=== PATIENT | male | born 1950 | race Caucasian/White ===

== ENCOUNTER 2017-07-13 13:53 | Outpatient (CLI) | payer MEDICARE ==
[2017-07-13 15:16] LABS: #Lymphocytes 0.9 thou/uL (1.20-3.40); #Monocytes 0.8 thou/uL (0.11-0.59); %Basophils 0.3 % (0.0-1.0); %Eosinophils 0.6 % (0.0-10.0); %Lymphocytes 13.3 % (21.0-51.0); %Monocytes 11.5 % (0.0-10.0); Hematocrit 25.8 % (42.0-52.0); Mean Platelet Volume 6.5 fL (7.4-10.4); Red Blood Cell (RBC) Count 2.91 mill/uL (4.70-6.10); White Blood Cell (WBC) Count 6.7 thou/uL (4.8-10.8)
[2017-07-13 15:34] LABS: Anion Gap 12 mmol/L (10-20); BUN (Urea Nitrogen) 14 mg/dL (8.4-25.7); Calc. Creatinine Clearance 0 mL/min (70-130); Calcium 9.2 mg/dL (7.8-10.44); Carbon Dioxide 24 mmol/L (23-31); Chloride 107 mmol/L (98-107); Estimated GFR-MDRD 53
== END 2017-07-13 13:54 | disposition home or self-care (01) ==
LOC: LABBT 13:53
PROVIDERS: ATTEND Surgery
DX: Z01.818 Encounter for other preprocedural examination (principal); K40.90 Unilateral inguinal hernia, without obstruction or gangrene, not specified as recurrent
CPT/HCPCS: 80048; 85025; 93005; 93010

== ENCOUNTER 2017-07-15 09:57 | Day surgery (SDC) | payer MEDICARE ==
[2017-07-13 14:17] VITALS: BMI 27.7
[2017-07-15] MEDS ORDERED: CEFAZOLIN/Water 2 GM/20 ML SYRINGE ONE (10:41)
[2017-07-15] MEDS ORDERED: Bupivacaine/Epinephrine 0.25% 30 ML VIAL ONE (11:02)
[2017-07-15 11:37] LABS: Hematocrit 25.8 % (42.0-52.0)
[2017-07-15] MEDS ORDERED: Midazolam HCl 2 mg/2 ml Vial ONE (11:40)
[2017-07-15] MEDS ORDERED: Fentanyl 250 MCG/5 ML VIAL ONE (11:40)
[2017-07-15] MEDS ORDERED: Glycopyrrolate 0.2 MG/ML 5 ML SYRINGE ONE (15:27)
[2017-07-15] MEDS ORDERED: PHENYLEPHRINE-NS 100 MCG/ML 10 ML SYRINGE ONE (15:27)
[2017-07-15] MEDS ORDERED: ePHEDrine/0.9% NaCl/PF SYRINGE 50 mg/10 ml ONE (15:27)
[2017-07-15] MEDS ORDERED: Ketorolac Tromethamine 30 MG/ML VIAL ONE (15:27)
[2017-07-15] MEDS ORDERED: Lidocaine 1% PF 5 ML VIAL ONE (15:27)
[2017-07-15] MEDS ORDERED: Propofol 200 MG/20 ML VIAL ONE (15:27)
[2017-07-15] MEDS ORDERED: Esmolol 100 MG/10 ML VIAL ONE (15:27)
[2017-07-15] MEDS ORDERED: Ondansetron HCl/PF 4 MG/2 ML Vial ONE (15:27)
--- NOTE | 2017-07-29 12:02 | OP ---
DATE OF PROCEDURE: 07/15/2017 PREOPERATIVE DIAGNOSIS: Right inguinal hernia. POSTOPERATIVE DIAGNOSIS: Right inguinal hernia. PROCEDURE: Da Abelardo laparoscopic right inguinal hernia repair with mesh, ProGrip. SURGEON: Dr. Martinez Zapata ANESTHESIA: General. ESTIMATED BLOOD LOSS: Minimal. COMPLICATIONS: None. SPECIMEN: None. FINDINGS: Right inguinal hernia. TECHNIQUE: The patient was taken to the operating room and placed supine on the table. After genera l anesthetic was obtained, a Escobedo was placed. The abdomen was shaved, prepped and draped in a steri le fashion. Curved incision made above the umbilicus. Cautery was used to dissect down to and score the fascia. Abdominal cavity entered bluntly using a Avril clamp. A 12-mm trocar was placed and hi gh-flow pneumoperitoneum was obtained. Left and right abdominal 8 mm robot trocars were placed. All ports were docked to the robot. The patient had been placed in Trendelenburg position. The surgeon goes to the console. The peritoneum was taken down in the right groin down into the preperitoneal s pace. The pubic tubercle was exposed. The full preperitoneal space is exposed. The indirect inguin al hernia is reduced and dissected back high upon the peritoneum. The indirect, direct and femoral a reas were all dissected. The iliopectineal line was fully exposed, ProGrip mesh brought in through t he right lower quadrant incision and its medial aspect was placed over pubic tubercle. The mesh was unfolded to completely cover the femoral and direct and indirect areas. The peritoneum was then reap proximated using running 3-0 Stratafix. All port sites are infiltrated using local anesthetic. All ports were removed under camera visualization and pneumoperitoneum was let down. PDS was used to cl ose the fascial defect above the umbilicus. All incisions were irrigated and closed using 4-0 Monocr yl and Dermabond. The patient was en route to recovery in stable condition. All instrument counts, needle counts, lap counts are correct.
== END 2017-07-15 15:04 | disposition home or self-care (01) ==
LOC: SDC 09:57
PROVIDERS: ATTEND Surgery
PROC: 0YU54JZ Supplement Right Inguinal Region with Synthetic Substitute, Percutaneous Endoscopic Approach (ICD-10-PCS; principal; 2017-07-15)
DX: K40.90 Unilateral inguinal hernia, without obstruction or gangrene, not specified as recurrent (principal); D53.9 Nutritional anemia, unspecified; F17.200 Nicotine dependence, unspecified, uncomplicated; Z90.49 Acquired absence of other specified parts of digestive tract; Z98.890 Other specified postprocedural states; Z79.899 Other long term (current) drug therapy; Z82.49 Family history of ischemic heart disease and other diseases of the circulatory system
CPT/HCPCS: 49650; 85014; 85018; C1781; J1885; J2001; J2250; J2405; J2704; J3010

== ENCOUNTER 2017-08-05 15:46 | Inpatient (IN) | payer MEDICARE ==
[~2017-08-05 15:46] MED LIST: ISOVUE-370 76%-LOCM 1 ML ONE; Iopamidol 370 76% 50 ML VIAL FS ONE
[2017-08-05 16:29] LABS: Hemoglobin 5.9 g/dL (14.0-18.0); Mean Corpuscular HGB CONC 31.7 g/dL (32.0-36.0); Mean Corpuscular Hemoglobin 26.2 pg (27.0-31.0); Mean Corpuscular Volume 82.7 fl (80.0-94.0); Mean Platelet Volume 6.8 fL (7.4-10.4); Platelet Count 281 thou/uL (130-400); RBC Distribution Width 17.7 % (11.5-14.5); Red Blood Cell (RBC) Count 2.23 mill/uL (4.70-6.10); White Blood Cell (WBC) Count 6.8 thou/uL (4.8-10.8)
[2017-08-05 16:42] LABS: ALT (SGPT) 28 U/L (8-55); AST (SGOT) 39 U/L (5-34); Alkaline Phosphatase 232 U/L (40-150); Anion Gap 11 mmol/L (10-20); BUN (Urea Nitrogen) 19 mg/dL (8.4-25.7); Bilirubin, Total 0.4 mg/dL (0.2-1.2); Calc. Creatinine Clearance 0 mL/min (70-130); Calcium 8.6 mg/dL (7.8-10.44); Carbon Dioxide 27 mmol/L (23-31); Chloride 97 mmol/L (98-107); Estimated GFR-MDRD 59; Globulin 2.7 g/dL (2.4-3.5); Glucose 112 mg/dL (80-115); Potassium 3.9 mmol/L (3.5-5.1); Protein, Total 5.7 g/dL (5.8-8.1); Sodium 131 mmol/L (136-145)
[2017-08-05 16:44] LABS: #Eosinphils 0.1 thou/uL (0.0-0.7); #Lymphocytes 0.8 thou/uL (1.20-3.40); #Monocytes 0.6 thou/uL (0.11-0.59); #Neutrophils 5.3 thou/uL (1.40-6.50); %Basophils 0.4 % (0.0-1.0); %Lymphocytes 11.2 % (21.0-51.0); %Monocytes 9.1 % (0.0-10.0); %Neutrophils 78.3 % (42.0-75.0); Anisocytosis SLIGHT = 6-15 cells (100X) (0-5/hpf); Hypochromia MODERATE=16-30 cells (100X) (0-5/hpf); MDiff Complete? YES; PLT Morphology Comment Appears Adequate; Polychromasia SLIGHT = 2-3 cells (100X) (0-2/hpf)
[2017-08-05] MEDS ORDERED: Pantoprazole 40 MG VIAL ONE (19:20)
[2017-08-05] MEDS ORDERED: Morphine 4 MG/ML VIAL ONE (22:29)
[2017-08-05] MEDS ORDERED: Ondansetron HCl/PF 4 MG/2 ML Vial ONE (22:29)
--- NOTE | 2017-08-05 23:10 | CT ---
CT OF THE ABDOMEN AND PELVIS WITH IV CONTRAST 08/05/17 PROVIDED CLINICAL HISTORY: Abdominal pain. FINDINGS: There is a 5 mm noncalcified left lower lobe pulmonary nodule. The visualized lung bases appear other heller clear. there are innumerable ill-defined hypodense masses throughout both the liver and spleen, compatible with metastatic disease. The pancreas, kidneys and adrenal glands appear unremarkable. There is an enlarged lymph node present in the retrocrural location. No additional lymph node enlargement evident. There is mild free fluid present within the abdomen about the right hepatic margin as well as within the pelvis. There is no evidence for bowel obstruction. There is no free air apparent. There is apparent mural thickening involving the sigmoid colon and descending colon. There are loops of distal ileum which also appear to have somewhat thickened stewart. Vascular calcifications are noted involving the abdominal aorta and its branches. The osseous structures demonstrate no concerning osteoblastic or osteolytic lesions. There is general ized noncircumscribed fluid density seen within the regional subcutaneous adipose layer suggesting ch anges of anasarca. IMPRESSION: 1. Innumerable hepatic and splenic hypodense masses, most compatible with metastatic disease. In fectious etiologies could also be considered but felt less likely. 2. Mild free intraperitoneal fluid as described above. 3. 5 mm left lower lobe pulmonary nodule. Followup nonemergent CT chest is recommended to evalua te for additional nodules. 4. Apparent mural thickening involving portions of colon and small bowel could reflect changes o f colitis and enteritis respectively. POS: [facility]
[2017-08-06] MEDS ORDERED: Ondansetron HCl/PF 4 MG/2 ML Vial IVP PRN (00:17)
[2017-08-06] MEDS ORDERED: Acetaminophen 325 MG TAB PO PRN (00:17)
[2017-08-06] MEDS ORDERED: Ondansetron ODT 4 MG TAB SL PRN (00:17)
[2017-08-06 01:20] VITALS: BMI 31.0
[2017-08-06 10:46] LABS: Hemoglobin 7.9 g/dL (14.0-18.0); Platelet Count 314 thou/uL (130-400)
[2017-08-06 10:55] LABS: Bilirubin Negative (Negative); Blood, Urine Negative (Negative); Clarity CLEAR (Clear); Glucose, Urine (Dipstick) Negative (Negative); Leukocyte Small (Negative); Nitrite Negative (Negative); Protein, Urine (Dipstick) Negative (Neg-Trace); Specific Gravity, Urine 1.034 (1.002-1.036)
[2017-08-06 10:57] LABS: Bacteria/HPF None Seen HPF (None Seen); Hyaline Casts/LPF 0-3 HYALINE CAST LPF (0-3 Hyaline); RBC/HPF 0-3 HPF (0-3); Squamous Epithelial None Seen HPF (0-3)
[2017-08-06 11:01] LABS: Troponin I 0.033 ng/mL (< 0.028)
[2017-08-06] MEDS ORDERED: Pantoprazole 40 MG VIAL IVP SCH (11:15)
[2017-08-06] MEDS: Sodium Chloride 0.9% 1,000 ML IV SCH (12:09)
--- NOTE | 2017-08-06 12:23 | CT ---
CT CHEST WITHOUT CONTRAST: Date: 08/06/17 HISTORY: Evaluate for mass. COMPARISON: Chest 2 views dated 08/03/17. FINDINGS: On the left hilum is some soft tissue density with peripheral reticulation and bronchial wall thicken ing. There is some mild narrowing of the left upper lobe bronchus with peripheral linear round atelec tasis or scarring. It is possible this could be a small mass, although there is a calcified granuloma in this area that may represent a scar from old infection. It is difficult to measure a specific mas s in particular as a majority of this is linear in nature. Remainder of the lungs are without suspici ous entity. Please see the recent CT of the abdomen and pelvis for intraabdominal findings. Moderate degenerative changes of the glenohumeral joints bilaterally. No compression fracture of the thoracic spine. No displaced rib fracture. IMPRESSION: Area of mild soft tissue thickening along the left superior hilum on the left superior mainstem bronc hus with peripheral either scarring or round atelectasis and less likely desmoplastic reaction from m alignancy. There is a calcified granuloma in the center of this area. This may represent prior infect ious process or scarring. PET CT may be beneficial to demonstrate benignity. At this point, percutane ous biopsy of one of the more amenable abdomen and pelvis findings would be beneficial. POS: [facility]
--- NOTE | 2017-08-06 14:37 | HP ---
CHIEF COMPLAINT: Black tarry stools. HISTORY OF PRESENT ILLNESS: This is a 66-year-old pleasant gentleman who was apparently in usual sta te of health, had his umbilical hernia surgery and inguinal hernia surgery on 07/15/2017 and noticed that his leg was swelling more and more and he had some pain. He was actually taking a lot of Aleve and Advil because of the umbilical pain as well. After the surgery, he did well and he was sent home on iron pills because he was found to be anemic, but on 07/20/2017, he started noticing black tarry stools and he came into the emergency room yesterday because he was concerned and they found his hemo globin to be 5.9. They gave him 2 units of blood and admitted him to the hospital for further evalua tion and treatment. The patient denies any chest pain, palpitation, shortness of breath. Admits to worsening swelling of both legs and the swelling has increased from the ankle all the way up to the t high into the abdomen. The patient otherwise denies any chest pain, shortness of breath, nausea or v omiting. PAST MEDICAL HISTORY: Significant for migraine headaches. PAST SURGICAL HISTORY: Appendectomy, inguinal hernia surgery, umbilical hernia surgery, and heel mike adela. SOCIAL HISTORY: He used to smoke. The patient smoke cigarettes every day, he has been smoking for 2 0-25 years. He recently quit drinking 3 months ago. Denies any recreational drugs. MEDICATIONS: Please see MAR. FAMILY HISTORY: Negative for diabetes and hypertension. ALLERGIES: No known drug allergies. REVIEW OF SYSTEMS: Significant for black tarry stool, bilateral worsening swelling of both the legs, otherwise, no fever, no chills, no headache, no appetite, no hearing latencies. No cough. No chest pain, diarrhea, dysuria or polyuria. No memory or mood changes. No neck pain. PHYSICAL EXAMINATION: VITAL SIGNS: Blood pressure is 114/56, temperature is 99.3, pulse is 100, respirations 18, breathing comfortably on room air. GENERAL: The patient is lying in bed, no apparent distress. HEENT: Atraumatic and normocephalic. Pupils equally round, react to light. Extraocular movements i ntact. Mucous membranes moist. NECK: Supple. No JVD. CHEST: Breath sounds are heard. There are no rales or rhonchi. HEART: S1, S2, no murmurs or gallops. ABDOMEN: Soft, some right upper quadrant tenderness and some swelling of the lower abdominal wall ex tending into the thighs and legs. Bowel sounds are present. EXTREMITIES: Bilateral pedal edema. Distal pulses are not palpable. No cyanosis. No clubbing. NEUROLOGIC: Alert, awake, oriented. No cranial deficits. No sensorimotor deficits. LABORATORY DATA: WBC count is 6.8, hemoglobin 5.9. Potassium is 3.9, creatinine is 1.22, albumin is 3.0, glucose is 112. CT scan of the abdomen shows innumerable hepatic and splenic hypodense masses, most compatible with metastatic disease, infectious etiologies could be considered, but felt less li brijesh has some intraperitoneal fluid, 5 mm left lower lobe nodule. ASSESSMENT AND PLAN: 1. Upper gastrointestinal bleed with tarry stools, probably secondary to NSAID use. We will stop NS AIDs, IV Protonix b.i.d. Consult GI. IV fluids. Monitor H&H and transfuse blood as needed. 2. Hepatosplenic hypodense masses. We will consult Oncology for their recommendations. We will als o do CT scan of the chest. 3. Tobacco use. 4. History of alcohol use. 5. Obesity with BMI of 31. Sequential compression devices for deep venous thrombosis prophylaxis, b ilateral pedal edema. We will check echocardiogram and do BNP as well. I will work with consultants in further caring for the patient.
[2017-08-06] MEDS: HYDROcodone/Acetaminophen 5/325 mg Tablet PO PRN ×3 (14:38→22:29)
[2017-08-06 14:41] LABS: Hemoglobin 7.4 g/dL (14.0-18.0)
[2017-08-06 15:21] LABS: CEA, Serum 4.7 ng/mL (< or = 5.0)
[2017-08-06 15:23] LABS: PSA-Asymptomatic (SCREENING) 3.02 ng/mL (0-4.0)
--- NOTE | 2017-08-06 16:01 | CON ---
DATE OF CONSULTATION: 08/06/2017 REASON FOR CONSULTATION: Liver lesions. HISTORY OF PRESENT ILLNESS: Mr. Winter is a 66-year-old gentleman who recently had a hernia repair on 07/15/2017. Since that time, he has developed peripheral edema. He presented to his primary care f or evaluation. A CBC drawn showed a hemoglobin of 6.9. He was asked to come to the emergency room y for evaluation. In the emergency room, an abdominal and pelvis CT showed diffuse hepatic an d splenic hypodense masses consistent with metastatic disease. There was mild free intraperitoneal f luid. There was some mural thickening involving a portion of the colon and small bowel. There was a very small lung nodule. He had a chest CT that showed some bronchial wall thickening, no obvious ma ss. The patient states he has had black stool recently. He has been taking Ecotrin and Motrin for h is pain for the past several months. He denies any weight loss and in fact states that he has gained 30 pounds over the last few weeks secondary to fluid retention. This gentleman has not seen a physi diane for many years. He has never had a colonoscopy or prostate exam. PAST MEDICAL AND SURGICAL HISTORY: Inguinal hernia repair. ALLERGIES: No known drug allergies. HOME MEDICATIONS: 1. Lasix 20 mg daily. 2. Protonix 40 mg daily. FAMILY HISTORY: No known history of colon cancer. SOCIAL HISTORY: The patient is , lives with his spouse. Smoked a pipe, recently quit a coupl e of months ago. He was a daily drinker, quit several months ago as well. REVIEW OF SYSTEMS: Constitutional: No fever, chills, or night sweats. Positive for recent weight g ain. Eyes: No blurred or double vision. ENT: No pain, hoarseness, sore throat, or dysphagia. Car diovascular: No chest pain, palpitations or syncope. Respiratory: No shortness breath, dyspnea on exertion or orthopnea. Gastrointestinal: No nausea, vomiting, diarrhea, or constipation. Positive for abdominal pain. Genitourinary: No dysuria or hematuria. Musculoskeletal: No joint or back brennan n. Skin: No rash or pruritus. Hematological: Positive for dark stools. Neurologic: No weakness, headache, numbness, tingling or seizure activity. Psychiatric: No anxiety or depression. PHYSICAL EXAMINATION: VITAL SIGNS: Temperature is 99.1, pulse is 100, respiratory rate 20, BP is 114/56. He is 92% on cecilia m air. GENERAL: Well-developed, well-nourished male in no acute distress. HEENT: Normocephalic, atraumatic. Pupils equal and reactive to light and wears glasses. NECK: Supple. CARDIOVASCULAR: Regular rate and rhythm. LUNGS: Clear. ABDOMEN: Distended and firm. Bowel sounds are positive. EXTREMITIES: He has got 3+ edema in bilateral lower extremities. SKIN: No rash. HEMATOLOGIC: No petechia or purpura. NEUROLOGICAL: Nonfocal. PSYCHIATRIC: The patient is alert and oriented and appropriate. PERTINENT LABORATORY AND X-RAYS: Current WBCs are 6.8, hemoglobin 7.9, hematocrit 24.6, platelet cou nt is 314,000 with 78% neutrophils, 11% lymphocytes. Sodium is 131, potassium 3.9, chloride 97, CO2 is 27, BUN is 19, creatinine 1.22, glucose is 112, calcium is 8.6, total bilirubin is 0.4, AST is 39, ALT is 28, alkaline phosphatase is 232. Troponin is 0.033. BNP is 778.3. Serum total protein is 5 .7, albumin 3.0, globulin 2.7. Urine is negative for bacteria. RADIOLOGY: Per HPI. IMPRESSION: 1. Metastatic liver lesions. 2. Possible gastrointestinal bleed. 3. Peripheral edema. 4. Possible congestive heart failure. DISCUSSION: CT findings were discussed in detail with the patient and his daughter. They are aware that this is very concerning for metastatic disease. They are willing to move forward with a colonos copy to make sure that there is no active bleed and for possible biopsies during the procedure. They do not consent to a CT guided liver biopsy. They are planning to go to [facility]. They have family that works there and that this is where they wish to be seen and evaluated and diagnosed. Our office information was provided should they need any assistance and I will check a CE A and PSA. Otherwise, I will defer to GI. Thank you for the consult.
--- NOTE | 2017-08-06 16:56 | CON ---
DATE OF CONSULTATION: 08/06/2017 TYPE OF CONSULTATION: Gastroenterology Consultation. REQUESTING PHYSICIAN: Thuy Mercedes MD REASON FOR CONSULTATION: GI bleeding. HISTORY OF PRESENT ILLNESS: Warren Winter is a 66-year-old man who was admitted to the hospital [facility] with melena and anemia, now unfortunately found to have likely metastatic disease on CT scan. B sammefly, he has no prior history of significant gastrointestinal illness. He does have some chronic i ndigestion symptoms for which he will often take aspirin or Tums, but no acid suppression. He was serna ving issues with an umbilical hernia and a right inguinal hernia and so he actually underwent double hernia repair on 07/15/[address] Zapata. Labs around that time did show some mild anemia. I no te his hemoglobin was 8.6 on 07/13/2017. He was started on some iron tablets as well as Protonix. Shane rasmussen says that over the past few weeks, he has been recovering in terms of pain from his surgery; that h as gone really well. In fact, with the Protonix, his indigestion has essentially resolved. He has c ontinued to take a lot of Advil and a lot of Aleve. Unfortunately, he developed several new symptoms . For the past two and a half weeks, his stools have been dark black. There has been no bright red blood in the stools. This was after an initial bout of constipation, but now he is having multiple b lack bowel movements per day. In addition, he started developing lower extremity edema which has pro gressed up the legs and thighs and into the lower abdomen. This is also new. He has begun to be fat igue and dyspnea on exertion. Upon presentation, his hemoglobin was found to be 5.9. He had a CT of the chest, abdomen, and pelvis and this unfortunately demonstrated innumerable masses in the liver a nd spleen, most compatible with metastatic disease, small amount of free fluid in the abdomen and an area of probable scarring at the left superior main stem bronchus. He was started on IV Protonix. Shane rasmussen was given 2 units of RBCs and hemoglobin came up to 7.9. Followup hemoglobin this afternoon was 7. 4, BUN is only 19 with creatinine 1.22. He has remained hemodynamically stable. He was seen by [facility] and we are consulted for the GI bleeding as well as workup of probable malignancy. REVIEW OF SYSTEMS: Full review of systems including constitutional, head, eyes, ears, nose, throat, GI, , cardiovascular, respiratory, musculoskeletal, and neurologic systems is negative except as no vasyl in the HPI. PAST MEDICAL HISTORY: Migraine headaches, appendectomy, umbilical hernia and inguinal hernia surgery on 07/15/2017. ALLERGIES: No known drug allergies. OUTPATIENT MEDICATIONS: Protonix 40 mg daily, Lasix 20 mg daily, Advil p.r.n., Aleve p.r.n. INPATIENT MEDICATIONS: Lathrop p.r.n., Protonix 40 mg IV q.12 hours. SOCIAL HISTORY: He is a former smoker. He recently quit drinking alcohol. No drug use. FAMILY HISTORY: Negative for GI malignancy. PHYSICAL EXAMINATION: VITAL SIGNS: Temperature 99.1, pulse 100, blood pressure 114/56, 92% oxygen saturation on room air. GENERAL: Pale 66-year-old man sitting up in bed comfortably in no acute distress. MENTAL: Alert and fully oriented, pleasant, conversational, can give a detailed coherent history. EYES: No scleral icterus. Extraocular movements intact. ENT: Mucous membranes moist, no oral lesions. LYMPH: No submandibular, supraclavicular lymphadenopathy. THYROID: Nontender to palpation. HEART: Regular rate and rhythm. LUNGS: Clear to auscultation bilaterally. ABDOMEN: Bowel sounds present, mild distention, soft, nontender to deep palpation throughout. EXTREMITIES: He has 1-2+ bilateral lower extremity edema all the way up to thighs. NEUROLOGICAL: Cranial nerves II-XII intact bilaterally. No focal deficits. VESSELS: Radial pulses 2+ bilaterally. LABORATORY STUDIES: Hemoglobin initially 5.9, came up to 7.9 after 2 units RBCs, now 7.4. WBC 6.8, platelets 314, BUN 19, creatinine 1.22. Total bilirubin 0.4, alkaline phosphatase 232, AST 39, ALT 2 8, albumin 3.0. CEA only 4.7. PSA only 3.02. BNP elevated to 778.3, troponin 0.033. IMAGING STUDIES: CT of the chest, abdomen, and pelvis demonstrated an area of probable scarring in t he left superior main stem bronchus. There are enumerable hepatic and splenic masses most compatible with metastatic disease. There is a 5 mm left lower lobe pulmonary nodule. Pancreas, kidneys and a drenal glands appeared normal. There were a few areas of possible thickening in the colon and small bowel. ASSESSMENT AND PLAN: 1. Melena. 2. Acute blood loss anemia. 3. Chronic nonsteroidal anti-inflammatory drug use. 4. Likely diffuse metastatic disease, unknown primary. I discussed with the patient and his family that this presentation certainly seems most consistent with gastrointestinal bleeding. I would suspe ct upper gastrointestinal source based on the melena as well as the heavy nonsteroidal anti-inflammat ory drug use. However, there is also what appears to be metastatic intraabdominal malignancy. Note the normal CEA level, but GI primary would certainly be high on the differential. To address both is sues, I recommended we proceed with EGD and colonoscopy tomorrow morning after bowel preparation this evening. In the meantime, continue with the IV Protonix. Continue to trend the H&H and transfuse a s needed. Thank you for the consultation. Please call back with questions or concerns.
[2017-08-06 17:39] LABS: Troponin I 0.025 ng/mL (< 0.028)
[2017-08-06] MEDS ORDERED: GoLYTELY 4,000 ml Bottle PO SCH (18:00)
[2017-08-06] MEDS: Pantoprazole 40 MG VIAL IVP SCH (20:32)
[2017-08-06 22:00] LABS: Hemoglobin 7.7 g/dL (14.0-18.0)
[2017-08-07] MEDS: HYDROcodone/Acetaminophen 5/325 mg Tablet PO PRN ×4 (02:04→16:43)
[2017-08-07 05:31] LABS: ALT (SGPT) 24 U/L (8-55); AST (SGOT) 29 U/L (5-34); Albumin 2.9 g/dL (3.4-4.8); Alkaline Phosphatase 209 U/L (40-150); Anion Gap 13 mmol/L (10-20); BUN (Urea Nitrogen) 18 mg/dL (8.4-25.7); Bilirubin, Total 0.5 mg/dL (0.2-1.2); Calc. Creatinine Clearance 117 mL/min (70-130); Calcium 8.7 mg/dL (7.8-10.44); Carbon Dioxide 25 mmol/L (23-31); Chloride 99 mmol/L (98-107); Estimated GFR-MDRD Greater than 90; Globulin 2.6 g/dL (2.4-3.5); Glucose 92 mg/dL (80-115); Potassium 3.4 mmol/L (3.5-5.1); Protein, Total 5.5 g/dL (5.8-8.1); Sodium 134 mmol/L (136-145)
[2017-08-07 05:56] LABS: Band 1 % (5-11); Hemoglobin 7.3 g/dL (14.0-18.0); Lymphocytes 12 % (21-51); MDiff Complete? YES; Mean Corpuscular HGB CONC 32.7 g/dL (32.0-36.0); Mean Corpuscular Hemoglobin 27.7 pg (27.0-31.0); Mean Corpuscular Volume 84.8 fl (80.0-94.0); Mean Platelet Volume 7.3 fL (7.4-10.4); Monocytes 15 % (0-10); Neutrophil 72 % (42-75); Platelet Count 233 thou/uL (130-400); RBC Distribution Width 17.1 % (11.5-14.5); Red Blood Cell (RBC) Count 2.63 mill/uL (4.70-6.10)
[2017-08-07] MEDS: Sodium Chloride 0.9% 1,000 ML IV SCH (08:53)
[2017-08-07] MEDS: Pantoprazole 40 MG VIAL IVP SCH (08:55)
[2017-08-07] MEDS ORDERED: Promethazine HCl 25 MG/ML VIAL SLOW IVP PRN (11:32)
[2017-08-07] MEDS ORDERED: Ondansetron HCl/PF 4 MG/2 ML Vial IVP PRN (11:32)
[2017-08-07] MEDS ORDERED: Promethazine HCl 25 MG/ML VIAL IM PRN (11:32)
--- NOTE | 2017-08-07 11:56 | OP ---
DATE OF PROCEDURE: 08/07/2017 GI ENDOSCOPY NOTE SURGEON: Kye Tirado M.D. CUSTOM BOW MAKER SURGEON: None. PROCEDURES: 1. Esophagogastroduodenoscopy with biopsies. 2. Colonoscopy with snare polypectomy. INDICATIONS: 1. Melena. 2. Acute blood loss anemia. 3. Chronic nonsteroidal anti-inflammatory drug use. 4. Metastatic disease to the liver and spleen, unknown origin. MEDICATIONS: See anesthesia record. FINDINGS: After discussion of the risks, benefits and alternatives of the procedure, informed consen t was obtained and witnessed. Pre-endoscopic cardiopulmonary examination was satisfactory. Timeout was performed before sedation was achieved. Sedation was achieved with anesthesia assistance in the endoscopy unit. A Pentax adult upper endoscope was placed into the oropharynx and passed through the cricopharyngeus under direct visualization. The esophageal mucosa appeared normal throughout with a normal-appearing Z-line. The endoscope was advanced into the stomach. Forward and retroflexed view s of the entire gastric mucosa were obtained. In the gastric antrum, there were few shallow erosions . There was a subtle diffuse nodularity into the remainder of the gastric mucosa. There was no evid ence of any old blood or active bleeding or ulcerations or bleeding lesions. Biopsies were obtained from the gastric antrum and body to rule out H. pylori infection. The pylorus had some mild stenosis and it was a bit difficult to pass the endoscope beyond the pylorus; however, this was achieved with out need for dilation. Examination of the first, second, and third portions of the duodenum was unre markable. The upper endoscope was then completely withdrawn and the patient was repositioned. Digital rectal exam demonstrated external hemorrhoids. A Pentax adult colonoscope was inserted into the anus and passed forward to the cecum in the usual fashion. The cecal base was identified by the appendiceal orifice as well as the ileocecal valve. The terminal ileum was intubated and the ileal m ucosa appeared normal. The colonoscope was then slowly withdrawn in a gradual and circumferential ma nner with careful examination of the entire colonic mucosa. The quality of the prep was good. There is diffuse melanosis throughout the entire colon. This is mild to moderate. In the sigmoid colon, there were a few small hyperplastic appearing polyps. A single small national account representative polyp measuring 2-3 mm was removed with cold snare and retrieved for pathology. The remainder of the colonic mucosa appeared normal except for the melanosis. There was no old blood or active bleeding or any bleeding lesions. Retroflexion in the rectum demonstrated some internal hemorrhoids. The colonoscope was the n completely withdrawn and the patient allowed to recover. The patient tolerated the procedure well. There were no immediate post-procedure complications. IMPRESSION: 1. No old blood, active bleeding, or bleeding lesions seen on upper or lower endoscopy. 2. No evidence of any primary tumor on upper or lower endoscopy. 3. Mild erosive gastritis in the antrum, with gastric biopsies obtained to rule out Helicobacter pyl osiel. 4. Mild pyloric stenosis. 5. Diffuse melanosis of the colon. 6. Few small hyperplastic polyps in the sigmoid colon, with single national account representative small polyp remove d with cold snare and retrieved for pathology. 7. Internal and external hemorrhoids. RECOMMENDATIONS: 1. Follow up pathology on the gastric and sigmoid colon polyp biopsies. 2. Continue to trend hemoglobin and hematocrit, and monitor for any recurrent overt bleeding. 3. Continue proton pump inhibitor. 4. The patient will likely need CT guided biopsy of one of his liver lesions.
[2017-08-07] MEDS ORDERED: Potassium Chloride 20 MEQ TAB PO SCH (12:15)
[2017-08-07 12:44] LABS: Hemoglobin 7.6 g/dL (14.0-18.0)
--- NOTE | 2017-08-07 15:19 | DIS ---
DATE OF ADMISSION: 08/05/2017 DATE OF DISCHARGE: 08/07/2017 DISCHARGE DIAGNOSES: 1. Upper gastrointestinal bleed secondary to erosive gastritis. 2. Anemia secondary to acute blood loss. 3. Hepatic and splenic masses, possibly because of metastatic disease. 4. Tobacco use. 5. Obesity. 6. Pedal edema. 7. Questionable mass in the lung on the CT scan, abnormal CT scan of the CT chest. BRIEF HOSPITAL COURSE: This is a 66-year-old pleasant gentleman who came into the hospital with lisa k tarry stools. GI was consulted. They evaluated the patient and transfused the patient. Patient g ot couple of units of blood and the hemoglobin was around 7.3-7.4. He underwent a colonoscopy and en doscopy, and the endoscopy showed erosive gastritis and a couple of biopsies were taken to rule out H elicobacter. There was no old blood or active bleeding or bloody lesions seen on the upper or lower endoscopy. The patient had some mild had some mild pyloric stenosis and diffuse melanosis of the col on. There were few hyperplastic polyps in the sigmoid colon with single represented a small polyp re moved with cold and snare and retrieved pathology. The patient is doing well after the procedure. Shane e was seen by Oncology as well this hospital stay. For evaluation of the masses, the patient said th at he will follow up with MD Hutchins and refused CT-guided biopsy of the liver lesions. The patient had a CT scan of the chest, which showed area of mid soft tissue thickening along the left superior hilum on the left superior main stem bronchus with peripheral either squatting or round atelectasis a nd less likely desmoplastic reaction for malignancy. They recommended a PET CT. The patient has tessa n explained the findings on the CT chest and the CT abdomen, he understands all this and he is marline henao to be followed up by MD Hutchins. With regards to the upper gastrointestinal bleed, patient has st opped having black tarry stools as of now and he wants to go home because he wants to take care of so me chores. He says that he will keep a watch on himself and if there is any re-evidence of bleeding or black tarry stools, he will come back to the emergency room for further evaluation and treatment. PHYSICAL EXAMINATION: VITAL SIGNS: At the time of discharge, his blood pressure was 122/60, afebrile, pulse was 92 and sheila athing comfortably on room air. GENERAL: The patient was lying in bed, in no apparent distress. HEENT: Atraumatic and normocephalic. Pupils are equally round and reactive to light. Extraocular m ovements intact. Mucous membranes moist. NECK: Supple. No JVD. CHEST: Breath sounds. There are no rales or rhonchi. HEART: S1, S2. No murmurs or gallops. ABDOMEN: Soft. EXTREMITIES: Bilateral pedal edema. NEUROLOGIC: Alert, awake and oriented. Cranial nerves II through XII. There are no sensorimotor de ficits. The patient also had an echocardiogram, which showed an ejection fraction of 60%. Overall, patient i s stable enough to be discharged. DISCHARGE INSTRUCTIONS: He is asked to come back to the emergency room in case symptoms recur. He i s asked to follow up with Dr. Tirado and MD Hutchins for further workup as an outpatient and PCP as [facility]. He is right now medically stable to be discharged. Total time for this discharge took 35 minutes.
[2017-08-07 16:56] VITALS: BP 127/70; TEMP 98.1
[2017-08-07] MEDS ORDERED: Lidocaine 1% PF 5 ML VIAL ONE (17:04)
[2017-08-07] MEDS ORDERED: PROPOFOL 200 MG/20 ML VIAL ONE (17:04)
--- NOTE | 2017-08-11 17:45 | PQF ---
DAVIE LORIE CORNELIUS MURRAY [id number] [address] [place] [address] [id number] CLINICAL DOCUMENTATION CLARIFICATION FORM: POST DISCHARGE Please clarify if "Pedal edema" can be further specified. Please check appropriate box(s): HEART FAILURE: A.TYPE: [ ] Systolic / HFrEF [ ] Diastolic / HFpEF [ ] Combined Systolic / Diastolic B.ACUITY [ ] Acute [ ] Acute on Chronic [ ] Chronic C.WITH (if appropriate) [ ] Hypertensive Heart Disease [ ] Hypertensive Heart and Kidney Disease [ ] Other diagnosis [ ] Unable to determine In addition, please specify: Present on Admission (POA): [ ] Yes [ ] No [ ] Unable to determine Please exercise your independent, professional judgment in responding to the clarification form. Clinical indicators are provided on the bottom of this form for your review. Thank you. ONC CONSULT; "Recently had hernia repair. Since that time, he has developed peripheral edema." "...states that he has gained 30 pounds over the last few weeks secondary to fluid retention." "3+ edema in bilateral lower extremities. " IMPRESSION; "Possible congestive heart failure." DC SUMMARY; "Pedal edema". "The patient also had echocardiogram, which showed an ejection fraction of 60%". GI CONSULT; "..lower extremity edema that has progressed up the legs and thighs and into the lower abdomen. He has begun to be fatigued and dyspnea on exertion. " LABS; BNP 778.3 ECHO; Mildly dilated left atrium. Mildly enlarged right atrium. Mildly enlarged left ventricle cavity. Normal diastolic function. Ejection fraction estimated at 60 -65 %. HOME MEDICATION; Lasix 20mg PO daily. CLINICAL INDICATORS - SIGNS / SYMPTOMS / LABS Ejection Fraction =___60___ % Dyspnea Peripheral edema Elevated BNP Orthopnea / SOB / dyspnea RISKS: Acute blood loss anemia Blood transfusion Postoperative status Liver metastasis TREATMENTS: IV fluids Blood transfusion (This form is maintained as a part of the permanent medical record) 2014 [employer]. All Rights Reserved [email or web address] [phone] [email or web address]
--- NOTE | 2017-08-15 13:49 | EKG ---
Test Reason : LOWHEMOGLOBIN Blood Pressure : / mmHG Vent. Rate : 099 BPM Atrial Rate : 099 BPM P-R Int : 192 ms QRS Dur : 090 ms QT Int : 356 ms P-R-T Axes : 060 071 -12 degrees QTc Int : 456 ms Sinus rhythm with marked sinus arrhythmia Abnormal QRS-T angle, consider primary T wave abnormality Abnormal ECG Confirmed by CHIKI BANSAL ([id number]), industrial editor ANAYA FALCON ([id number]) on 08/15/2017 1:49:11 PM Referred By: Confirmed By:CHIKI BANSAL
== END 2017-08-07 17:27 | disposition home or self-care (01) | DRG 378 ==
LOC: ERS 15:46 → 2SE 23:16
PROVIDERS: ADMIT Internal Medicine; ATTEND Internal Medicine
PROC: 30233N1 Transfusion of Nonautologous Red Blood Cells into Peripheral Vein, Percutaneous Approach (ICD-10-PCS; 2017-08-05)
PROC: 30233N1 Transfusion of Nonautologous Red Blood Cells into Peripheral Vein, Percutaneous Approach (ICD-10-PCS; 2017-08-06)
PROC: 0DB68ZX Excision of Stomach, Via Natural or Artificial Opening Endoscopic, Diagnostic (ICD-10-PCS; principal; 2017-08-07)
PROC: 0DB78ZX Excision of Stomach, Pylorus, Via Natural or Artificial Opening Endoscopic, Diagnostic (ICD-10-PCS; 2017-08-07)
PROC: 0DBN8ZX Excision of Sigmoid Colon, Via Natural or Artificial Opening Endoscopic, Diagnostic (ICD-10-PCS; 2017-08-07)
DX: K29.61 Other gastritis with bleeding (principal); C78.7 Secondary malignant neoplasm of liver and intrahepatic bile duct; C78.89 Secondary malignant neoplasm of other digestive organs; K31.1 Adult hypertrophic pyloric stenosis; C80.1 Malignant (primary) neoplasm, unspecified; D62 Acute posthemorrhagic anemia; K63.5 Polyp of colon; R60.0 Localized edema; T39.395A Adverse effect of other nonsteroidal anti-inflammatory drugs [NSAID], initial encounter; Z98.890 Other specified postprocedural states; Z79.1 Long term (current) use of non-steroidal anti-inflammatories (NSAID); K63.89 Other specified diseases of intestine; K64.4 Residual hemorrhoidal skin tags; K64.8 Other hemorrhoids; F17.210 Nicotine dependence, cigarettes, uncomplicated; J98.4 Other disorders of lung; E66.9 Obesity, unspecified; Z68.31 Body mass index [BMI] 31.0-31.9, adult
CPT/HCPCS: 36415; 36430; 71250; 74177; 80053; 81001; 82274; 82378; 83880; 84484; 85007; 85014; 85018; 85025; 85027; 86850; 86900; 86901; 88305; 88312; 93005; 93306; 96374; 96375; 99214; A4216; C9113; G0103; G0463; J2001; J2270; J2405; J2704; P9016